=== PATIENT | female | born 1990 | race Caucasian/White ===

== ENCOUNTER → 2018-06-06 | Outpatient (CLI) | payer OTHER ==
[~2018-06-06] MED LIST: HYDROCODON-ACE1 EAC7 PO; KEFLEX500 MG PO; MEDROL DOSEPAK4 MG PO; PENTASA500 MG PO; PROMETHAZINE HC25 M1 PO
== END | disposition home or self-care (01) ==
LOC: RAD 08:30
PROC: 0UJ87ZZ Inspection of Fallopian Tube, Via Natural or Artificial Opening (ICD-10-PCS; principal; 2018-06-06)
PROC: 0UJD7ZZ Inspection of Uterus and Cervix, Via Natural or Artificial Opening (ICD-10-PCS; principal; 2018-06-06)
PROC: BU18YZZ Fluoroscopy of Uterus and Fallopian Tubes using Other Contrast (ICD-10-PCS; principal; 2018-06-06)
DX: Z31.41 Encounter for fertility testing (principal)
CPT/HCPCS: 74740